=== PATIENT | male | born 2005 | race Caucasian/White ===

== ENCOUNTER 2024-06-26 19:51 | Emergency (ER) | payer SELFPAY ==
[2024-06-26 20:00] VITALS: BP 125/87
[2024-06-26] MEDS: ZOFRAN ODT (ORALLY DISINTEGRATING) 4 MG PO (20:12)
[2024-06-26 23:27] VITALS: BP 129/81
[2024-06-26 23:32] VITALS: BMI 22.5
[2024-06-27] VITALS: BP 130/66
[2024-06-27 00:04] LABS: % Basophils 0.3 % (0-2); % Immature Granulocytes 0.4 % (0-0.5); % Monocytes 5.1 % (1.7-9.3); % Neutrophils 83.2 % (42.2-75.2); Absolute Immature Granulocytes 0.1 10^3/uL (0-0.05); Absolute Lymphocytes 1.3 10^3/uL (1.2-3.4); Absolute Monocytes 0.6 10^3/uL (0.1-0.6); Hematocrit 42.5 % (39.0-52.0); Hemoglobin 14.4 g/dL (13.0-18.0); Mean Corp Hgb Conc. 33.9 g/dL (33.0-37.0); Mean Corpuscular Hgb 28.9 pg (27.0-31.0); Mean Corpuscular Volume 85.3 fL (80.0-94.0); Mean Platelet Volume 10.1 fL (7.4-10.4); Nucleated Red Blood Cells % 0 % (-); Platelet Count 299 10^3/uL (130-400); Red Blood Cell Count 4.98 10^6/uL (4.70-6.10); Red Cell Dist. Width 12.3 % (11.5-14.5)
[2024-06-27 00:18] LABS: ALT (SGPT) 29 U/L (0-50); AST (SGOT) 18 U/L (17-59); Albumin 5.1 g/dl (3.5-5.0); Alkaline Phosphatase 68 U/L (38-126); Blood Urea Nitrogen 13 mg/dl (9-20); Carbon Dioxide 27 mmol/L (22-30); Chloride 100 mmol/L (98-107); Estimated Creatinine Clearance > 125 ml/min; Glucose 142 mg/dl (70-99); Sodium 138 mmol/L (135-145); Total Bilirubin 0.9 mg/dl (0.2-1.3); Total Protein 7.5 g/dl (6.3-8.2); eGFR > 60.00
--- NOTE | 2024-06-27 00:22 | ED.GENMED ---
History of Present Illness
General
Chief Complaint: Heart Rate Problem
Source: patient and family (Mother who is at bedside)
Exam Limitations: none
Time Seen by Provider: 06/27/24 00:02
Nursing documentation reviewed up to this point in time: agreed with except (Patient does not have prior history of seizures)
History of Present Illness
History of Present Illness:
This is a 18-year-old male who has no significant past medical history states tonight around 7 PM while lying down in bed he developed abrupt onset of dizziness feeling like the room was spinning accompanied with involuntary movement of his eyes
feeling like his eyes were moving back and forth horizontally and continued despite closing his eyes. Symptoms persisted with nausea, retching and he then developed some palpitations feeling that his heart was beating rapidly. He tried to fall
asleep but symptoms persisted thus presented to the ED and during triage she began to feel lightheaded with increase in palpitations but denies loss of consciousness.
He was given Zofran ODT and now reports complete relief of symptoms. No further involuntary eye movement, no further nausea, no further palpitations.
Prior to tonight he has been feeling well. No recent fever, no GI illness nor URI.
No history of similar episodes in the past however he did suffer 1 episode of syncope with prodromal symptoms of lightheadedness, tunnel vision, nausea. Current symptoms feel quite different from that episode.
Nursing notes note prior history of seizures however patient does not have history of seizure. Mother who is at bedside is concerned for possible seizure however patient has never been diagnosed with seizures. No prior history of absent spells.
He did not lose consciousness tonight and has full recollection of the event.
He takes no medicines on a daily basis.
He denies alcohol nor drug use save for occasional marijuana.
Past History
Past History
ED Past Medical History: Psychiatric
ED Past Surgical History: Orthopedic (Right ankle)
Social History
Tobacco: Non-smoker
Alcohol: None
Drug: Marijuana
Personal: Single
Living: with family
Employment: Student
Family History
Family History: Other (Noncontributory)
Phy Exam
Physical Exam
Physical Exam:
GENERAL: Alert , in no apparent distress. 18-year-old male appears his stated age, bright and alert, pleasant, appears in no acute distress.
EYE: pupils equal and reactive. Extraocular muscles intact with brief horizontal gaze nystagmus bilaterally. Anicteric. Test of skew is normal. Thang-Hallpike negative.
NECK: Supple, nontender, no meningismus, no significant adenopathy.
ENT: posterior pharynx is clear, oral mucosa is moist. TM clear b/l, nares patent.
CARDIAC: Regular rate and rhythm. no murmur.
LUNGS: Clear breath sounds bilaterally, no acute respiratory distress, no wheezes/rales/rhonchi
ABDOMEN: Soft, nondistended, without focal tenderness, normoactive BS.
NEUROLOGICAL: Alert and oriented x3, no focal neuro deficits.
SKIN: Warm and dry, normal color, skin intact. No rash.
MUSCULOSKELETAL: No C/C/E. peripheral pulses are full and equal b/l. No palpable tenderness.
PSYCH: Normal and appropriate interaction.
Course
Orders/Labs/Results
Orders:
Orders
06/26/24 19:52
Electrocardiogram (*1) Urgent
Reason for Study: Palpitations
EKG- Treatment ONCE
06/26/24 20:11
Ondansetron Orally Disint [Zofran Odt (Orally Disintegrating)] 4 mg .ROUTE .STK-MED ONE
06/26/24 20:12
Ondansetron Orally Disint [Zofran Odt (Orally Disintegrating)] 4 mg PO NOW STA
06/26/24 23:47
Complete Blood Count/With Diff Urgent
Comprehensive Metabolic Panel Urgent
Free T4 Urgent
Comment: ADD ON
TSH Urgent
06/27/24 00:57
Urine Drug Abuse Screen Urgent
Date Specimen was Collected: 06/27/24
Time Specimen was Collected: 00:56
06/27/24 01:56
Add On- LAB Urgent
Tests Added?: free T-4
Abnormal Lab Results
06/26/24 06/27/24
23:47 00:57
WBC 12.0 H 10^3/uL
(4.8-10.8)
Abs Immat Gran (auto) 0.1 H 10^3/uL
(0-0.05)
Absolute Neuts (auto) 10.0 H 10^3/uL
(1.4-6.5)
Neutrophils % 83.2 H %
(42.2-75.2)
Lymphocytes % 11.0 L %
(20.5-51.1)
Glucose 142 H mg/dl
(70-99)
Albumin 5.1 H g/dl
(3.5-5.0)
TSH 0.38 L uIU/ml
(0.47-4.68)
U Marijuana (THC) Screen Positive H
(Negative)
06/26/24 23:47
06/26/24 23:47
Vital Signs
Initial and Last Documented VS:
Initial Vital Signs
Temp Pulse Resp BP Pulse Ox
97.6 F 118 20 125/87 100
06/26/24 20:00 06/26/24 20:00 06/26/24 20:00 06/26/24 20:00 06/26/24 20:00
Last Documented Vital Signs
Temp Pulse Resp BP Pulse Ox
97.6 F 53 20 130/66 98
06/26/24 20:00 06/27/24 02:15 06/27/24 02:15 06/27/24 00:00 06/27/24 00:30
MDM/Problems Addressed
Differential Diagnosis Includes:
Patient presents with acute onset of dizziness, nystagmus, nausea and vomiting and palpitation that appears acute peripheral vertigo in nature.
Currently asymptomatic.
Exam is benign.
Initial EKG shows sinus tachycardia. Sinus tachycardia has since resolved and monitor shows normal sinus rhythm without ectopy.
He remains hemodynamically stable.
Labs are pending.
*Pulse Oximetry
Patient hypoxic: no
*EKG
Interpreted by ED Provider?: Yes
Interpretation: abnormal
Rate: tachycardiac
Rhythm: sinus
[place]: normal axis
Interval: normal interval
QRS Pattern: normal QRS
Ischemia: non-specific ST changes
*Sand Operator Interpretation
Rate: normal
Interpretation: normal
Rhythm: sinus
*Critical Care Note
Total Time (30-74mins, 75-104mins- exclusive of procedures): Not Applicable
Update Note
Update Note:
02:45
Patient resting comfortably, sleeps when undisturbed, easily arousable.
He remains asymptomatic. No return of dizziness nor palpitations nor nausea.
Monitor continues to show normal sinus rhythm.
Labs show mildly elevated white blood cell count of 12, unremarkable chemistries save for mildly elevated random glucose of 142. TSH mildly low at 0.38 but normal free T4.
UDS positive only for THC, consistent with history.
I suspect benign paroxysmal positional vertigo and recommend he stay well-hydrated over the next several days.
Prescription for Zofran as well as meclizine has been provided.
Prompt follow-up with PCP for recheck.
Return precautions discussed.
ED Attending Note
-
Portions of this chart may have been created with voice recognition software.� Occasional wrong word or��sound alike� substitutions may have occurred due to the inherent limitations of voice recognition software.
Discharge Plan
Departure
Patient Disposition: Home (Routine Discharge)
Date of Disposition: 06/27/24
Time of Disposition: 02:44
Patient with high blood pressure during this ER visit?: No
Condition: Good
Discharge Problem:
Acute onset of severe vertigo, sinus tachycardia-resolved
Instructions: Vertigo (a type of dizziness)
Prescriptions:
New
meclizine 25 mg tablet
25 mg PO QID PRN (Reason: dizziness, nausea) Qty: 20 0RF
ondansetron 4 mg tablet,disintegrating
4 mg PO QID PRN (Reason: nausea and vomiting) Qty: 20 0RF
Referrals:
NONE,* [Family Provider] - Call in 1-3 days for appt
Interventions
Interventions:
*Risk Screen - Suicide Last Done: 06/26/24 20:00
*General Assessment Last Done: 06/26/24 20:00
*Neglect/Abuse Screening Last Done: 06/26/24 20:00
*ED COVID-19 Vaccine History Last Done: 06/26/24 20:07
ED- Cardiac Assessment Last Done: 06/26/24 23:28
ED- Pulmonary Assessment Last Done: 06/26/24 23:28
Discharge Date and Time
Print Language: [place]
[2024-06-27 00:49] LABS: TSH 0.38 uIU/ml (0.47-4.68)
[2024-06-27 01:33] LABS: Amphetamines Negative (Negative); Barbiturates Negative (Negative); Benzodiazepines Negative (Negative); Buprenorphine Negative (Negative); Cocaine Negative (Negative); Marijuana Positive (Negative); Methadone Negative (Negative); Methamphetamines Negative (Negative); Opiates Negative (Negative); Phencyclidine Negative (Negative); Tricyclic Antidepressants Negative (Negative)
[2024-06-27 02:33] LABS: Free T4 1.31 ng/dl (0.78-2.19)
[2024-06-27 02:50] VITALS: BP 121/75
== END 2024-06-27 02:52 | disposition home or self-care (01) ==
LOC: EMR 19:51
PROVIDERS: Emergency Medicine; EMERGENCY PHYSICIAN Emergency Medicine
DX: R42 Dizziness and giddiness (principal); R00.0 Tachycardia, unspecified
CPT/HCPCS: 99283; 80053; 80306; 84439; 84443; 85025; 93005

== ENCOUNTER 2024-06-29 18:06 | Emergency (ER) | payer SELFPAY ==
[2024-06-29 18:10] VITALS: BP 129/67
[2024-06-29 18:12] VITALS: BP 129/67
[2024-06-29 18:33] LABS: Glucose - Point of Care 102 mg/dl (70-99)
[2024-06-29 18:37] LABS: % Basophils 0.3 % (0-2); % Eosinophils 0.5 % (0-6); % Immature Granulocytes 0.2 % (0-0.5); % Lymphocytes 30.9 % (20.5-51.1); % Monocytes 5.9 % (1.7-9.3); % Neutrophils 62.2 % (42.2-75.2); Absolute Monocytes 0.4 10^3/uL (0.1-0.6); Absolute Neutrophils 4.1 10^3/uL (1.4-6.5); Hematocrit 39.5 % (39.0-52.0); Hemoglobin 13.6 g/dL (13.0-18.0); Mean Corp Hgb Conc. 34.4 g/dL (33.0-37.0); Mean Corpuscular Hgb 29.6 pg (27.0-31.0); Mean Corpuscular Volume 86.1 fL (80.0-94.0); Mean Platelet Volume 10.2 fL (7.4-10.4); Nucleated Red Blood Cells % 0 % (-); Platelet Count 259 10^3/uL (130-400); Red Blood Cell Count 4.59 10^6/uL (4.70-6.10); Red Cell Dist. Width 12.2 % (11.5-14.5); White Blood Cell Count 6.6 10^3/uL (4.8-10.8)
[2024-06-29 18:50] LABS: ALT (SGPT) 25 U/L (0-50); AST (SGOT) 20 U/L (17-59); Albumin 4.5 g/dl (3.5-5.0); Alkaline Phosphatase 68 U/L (38-126); Blood Urea Nitrogen 13 mg/dl (9-20); Calcium 9.6 mg/dl (8.4-10.2); Carbon Dioxide 27 mmol/L (22-30); Chloride 103 mmol/L (98-107); Estimated Creatinine Clearance > 125 ml/min; Glucose 114 mg/dl (70-99); Potassium 3.7 mmol/L (3.5-5.1); Sodium 139 mmol/L (135-145); Total Bilirubin 1.3 mg/dl (0.2-1.3); eGFR > 60.00
[2024-06-29 19:00] VITALS: BP 113/64
[2024-06-29 21:40] VITALS: BP 103/63
[2024-06-29 22:10] VITALS: BP 112/69
[2024-06-29 23:00] VITALS: BP 128/66
--- NOTE | 2024-06-29 23:01 | ED.GENMED ---
History of Present Illness
General
Chief Complaint: Fainting/Passed Out
Source: patient and family
Exam Limitations: none
Time Seen by Provider: 06/29/24 19:20
Nursing documentation reviewed up to this point in time: agreed with
History of Present Illness
History of Present Illness:
18-year-old male presenting to the emergency department today with concerns of syncopal episode after washing dishes felt lightheaded prior blurred vision then blacked out may have hit his head otherwise feels well at this point no ongoing symptoms.
Denies any recent chest pain palpitation shortness of breath no postictal period family was at the site immediately after the fall.
Past History
Past History
ED Past Medical History: Psychiatric
ED Past Surgical History: Orthopedic (Right ankle)
Social History
Tobacco: Non-smoker
Alcohol: None
Drug: Marijuana
Personal: Single
Living: with family
Employment: Student
Family History
Family History: Other (Noncontributory)
Review of Systems
Review of Systems
Allergies reviewed?: Yes
All Other Systems: ROS reviewed and negative except as documented in HPI and ROS
Phy Exam
Physical Exam
Physical Exam:
GENERAL: Alert , in no apparent distress
EYE: pupils equal and reactive
NECK: Supple, no significant adenopathy.
ENT: o/p clr, mmm.
CARDIAC: Regular rate and rhythm .
LUNGS: Clear breath sounds bilaterally, no acute respiratory distress, no wheezes/rales/rhonchi
ABDOMEN: Soft, without focal tenderness, no r/g, no cvat
NEUROLOGICAL: Alert and oriented, no focal neuro deficits
SKIN: Warm and dry, skin intact.
MUSCULOSKELETAL: No edema, well perfused.
PSYCH: Normal and appropriate interaction.
Course
Orders/Labs/Results
Orders:
Orders
06/29/24 18:19
EKG [Electrocardiogram (*1)] Urgent
Reason for Study: Syncope
EKG- Treatment ONCE
06/29/24 18:24
CMP [Comprehensive Metabolic Panel] Urgent
06/29/24 18:25
CBC/With Diff [Complete Blood Count/With Diff] Urgent
06/29/24 19:41
CT Head W/o Iv Contrast Urgent
Comment:
Reason For Exam: syncope, hit head, headache
Abnormal Lab Results
06/29/24 06/29/24 06/29/24
18:24 18:25 18:32
RBC 4.59 L 10^6/uL
(4.70-6.10)
Glucose 114 H mg/dl
(70-99)
POC Glucose 102 H mg/dl
(70-99)
06/29/24 18:25
06/29/24 18:24
Vital Signs
Initial and Last Documented VS:
Initial Vital Signs
BP
129/67
06/29/24 18:10
Last Documented Vital Signs
Temp Pulse Resp BP Pulse Ox
98.1 F 90 14 113/64 97
06/29/24 18:12 06/29/24 20:03 06/29/24 20:03 06/29/24 19:00 06/29/24 20:03
MDM/Problems Addressed
MDM/Problems Addressed:
18-year-old male presenting to the emergency department today with concerns of a syncopal episode. This was preceded with a prodrome of lightheadedness then blacked out hit his family was on the scene was not unconscious for extended period of time
no rhythmic movement no symptoms consistent with seizure no postictal period labs unremarkable CT scan negative, EKG unchanged. No evidence of emergent pathology advised for close outpatient follow-up. Stable for outpatient follow-up return
precautions given.
*Critical Care Note
Total Time (30-74mins, 75-104mins- exclusive of procedures): Not Applicable
ED Attending Note
-
Portions of this chart may have been created with voice recognition software.� Occasional wrong word or��sound alike� substitutions may have occurred due to the inherent limitations of voice recognition software.
Discharge Plan
Departure
Patient Disposition: Home (Routine Discharge)
Date of Disposition: 06/29/24
Time of Disposition: 23:02
Patient with high blood pressure during this ER visit?: No
Condition: Good
Covid-19: Not Applicable
Discharge Problem:
Syncope
Instructions: Syncope (Fainting) (DC)
Prescriptions:
No Action
meclizine 25 mg tablet
25 mg PO QID PRN (Reason: dizziness, nausea) Qty: 20 0RF
ondansetron 4 mg tablet,disintegrating
4 mg PO QID PRN (Reason: nausea and vomiting) Qty: 20 0RF
Referrals:
Kavin Wolf MD [Active] - Follow up in 10 days
NONE,* [Family Provider] -
Activity Restrictions/Additional Instructions:
You came to the emergency department today after a syncopal episode. Please follow closely with your primary care doctor. Return for any worsening, new or concerning symptoms.
Interventions
Interventions:
*Risk Screen - Suicide Last Done: 06/29/24 18:12
*General Assessment Last Done: 06/29/24 18:12
*Neglect/Abuse Screening Last Done: 06/29/24 18:12
ED- Cardiac Assessment Last Done: 06/29/24 18:32
ED- Neurological Assessment Last Done: 06/29/24 18:32
Discharge Date and Time
Print Language: [place]
== END 2024-06-29 23:22 | disposition home or self-care (01) ==
LOC: EMR 18:06
PROVIDERS: EMERGENCY PHYSICIAN Student in an Organized Health Care Education/Training Program
DX: R55 Syncope and collapse (principal)
CPT/HCPCS: 99284; 70450; 80053; 82962; 85025; 93005

== ENCOUNTER → 2024-09-06 15:06 | Outpatient (REF) | payer OTHER, SELFPAY | LOC: RCS 15:06 | PROVIDERS: ATTENDING PHYSICIAN Internal Medicine Cardiovascular Disease; FAMILY PHYSICIAN Internal Medicine | DX: R00.2 Palpitations (principal) | CPT/HCPCS: 93306 ==